=== PATIENT | male | born 1960 | race Caucasian/White ===

== ENCOUNTER 2016-06-08 14:04 | Inpatient (IN) ==
[2016-06-08] MEDS ORDERED: ASPIRIN 325 MG TABLET PO STA (14:43)
[2016-06-08] MEDS ORDERED: NITROGLYCERIN 2% OINT 1 INCH/GM PACK TOP STA (14:43)
[2016-06-08] MEDS ORDERED: ENOXAPARIN 100 MG/ML SYRINGE SUBCUT STA (14:43)
[2016-06-08] MEDS ORDERED: MORPHINE 2 MG/1 ML SYRINGE IV STA (14:43)
[2016-06-08] MEDS ORDERED: ONDANSETRON 4 MG/2 ML VIAL IV STA (14:43)
[2016-06-08] MEDS ORDERED: METOPROLOL TARTRATE 5 MG/5 ML VIAL IV STA (14:43)
--- NOTE | 2016-06-08 14:46 | EKG Report ---
Stationary ECG Study [facility] ER Test Date: 06/08/2016 2:22:13 PM Pat Name: JOANNE WILLARD Department: Room: 112 Gender: M Debt Counselor: : 1960 Requested by: Fabio Oliva Order Number: [id number] Reading MD: [place] Intervals [facility] Rate: 101 P: 54 NH: 159 QRS: 4 QRSD: 96 T: 47 QT: 333 QTc: 391 Interpretive Statements SINUS TACHYCARDIA OTHERWISE NORMAL TRACING Electronically Signed On 06-09-16 11:04:07 PYROTECHNICIAN by LA[place] SHAH [email or web address]
[2016-06-08 14:52] LABS: Basophils # 0.1 10*3/uL (0.0-0.2); Basophils % 0.6 % (0.0-0.8); Eosinophils # 0.1 10*3/uL (0.0-0.87); Eosinophils % 1.2 % (0.00-10.9); Hematocrit 47.3 VOL% (42.0-52.0); Hemoglobin 16.7 GM/DL (14.0-18.0); Immature Granulocytes % 0.3 %; Immature Granulocytes Absolute 0.03 #; Lymphocytes # 3.2 10*3/uL (1.4-4.0); Lymphocytes % 33.4 % (21.2-54.2); Mean Corpuscular HGB Conc 35.3 GM/DL (32-36); Mean Corpuscular Hemoglobin 31 PG (27-34); Mean Corpuscular Volume 86.3 FL (87-102); Mean Platelet Volume 9.4 FL (9.6-12.0); Monocytes # 0.6 10*3/uL (0.11-0.8); Neutrophils # 5.7 10*3/uL (1.4-7.4); Neutrophils % 58.5 % (38.7-73.9); Platelet Count 219 T/CUMM (130-400); Red Blood Count 5.48 MC/CUMM (3.8-5.5); Red Cell Distribution Width 12.6 % (9.3-17.3); White Blood Count 9.7 T/CUMM (4-12)
[2016-06-08 14:58] LABS: PT Patient Result 10.9 SECS; Partial Thromboplastin Time 27.9 SECS (0-40)
--- NOTE | 2016-06-08 15:00 | Emergency Department Note ---
Neel Hughes Gwan, am scribing for, and in the presence of, Fabio Walker MD 14:44 . Denise Hughes James D, MD, personally performed the services described in this documentation, ascribed by Lata Shaikh in my presence, and it is both accurate and complete 449 . Arrival - Arrival Chief Complaint: Chest Pain Stated Complaint: CHEST PAIN ED Nursing Triage Note: C/o sharp, constant left side chest pain radiating to left arm-onset 0800 this morning. Denies SOB or N/V. Mode of Arrival: Wheelchair Limitations: No Limitations Source: Patient, Old Records Reviewed, RN Notes Reviewed - History of Present Illness HPI Narrative: Pt is a 56 y/o male, with a hx of HTN and NIDDM, who presents to the ED with a c /o sharp constant chest pain with an onset 0800 this morning. Patient continued to note that his pain radiates to his left arm. He denies SOB, excessive urination, diaphoresis or any N/V. Patient stated that his onset began 2 days ago and he assumed it was gas. With onset today pt was prompted to report to report to ED. He confirmed that he has been compliant with prescribed medications. Family stated that pt was dx with strep throat 3 weeks ago. Patient is followed by [facility]. He has a SHx of 1 ppd cigarettes. Patient is in pain and has a LOCKETT now while in ED. No other problems/complaints reported in ED. Onset (ago): hour(s) Consistency: constant Severity: moderate Allergies/Adverse Reactions: Allergies Allergy/AdvReac Type Severity Reaction Status Date / Time No Known Allergies Allergy Verified 06/08/16 14:22 Home Medications: Home Medications Medication Instructions Recorded Confirmed Type Allopurinol 300 mg PO DAILY 06/08/16 06/08/16 History Aspirin [Ecotrin] 81 mg PO QPM 06/08/16 06/08/16 History Gabapentin 100 mg PO BID 06/08/16 06/08/16 History Lovastatin 10 mg PO QPM 06/08/16 06/08/16 History Nifedipine [Nifedipine ER] 30 mg PO DAILY 06/08/16 06/08/16 History metFORMIN [Glucophage] 500 mg PO BID 06/08/16 06/08/16 History Review of System - Review of System 12 point system: reviewed and no additional remarkable complaints except as stated - Review of System Cardiovascular: Present: as per HPI, chest pain Medical,Surgical,& Family Hx - Medical History Cardio: History of: Hypertension Endocrine: History of: Diabetes Mellitus (NIDDM), Dyslipidemia Rheumatology: History of;: Gout - Surgical History HEENT Surgeries: Surgical HX of: Tonsilectomy & Adenoidectomy - Social History Smoking Status: Current every day smoker Frequency of Alcohol Use: None Type of Drug Use: None Exam Vital Signs: Vital Signs Temperature 97.8 F 06/08/16 14:15 Pulse Rate 109 H 06/08/16 14:15 Respiratory Rate 18 06/08/16 14:15 Blood Pressure 144/88 06/08/16 14:15 O2 Sat by Pulse Oximetry 96 06/08/16 14:15 GENERAL: This is a well-nourished well-developed white male, smells of cigarettes, in no apparent distress. VITAL SIGNS: Reviewed HEENT: Head is atraumatic and normocephalic. Pupils are equal round react to light. Extraocular movements are intact. Oropharynx is benign with moist mucous membranes. NECK: Neck is soft and supple without tenderness. There are no masses. There is no lymphadenopathy. LUNGS: Lungs are clear to auscultation. Chest rises symmetrically. There is no chest wall tenderness. CV: Heart is regular rate and rhythm without murmurs rubs or gallops. ABDOMEN: Abdomen is soft, nontender to palpation. There are no abdominal abnormal masses palpated. There is no organomegaly. Bowel sounds are present and active. SKIN: Skin is warm and dry. No rash. EXTREMITIES: Patient has full range of motion without tenderness. There is no pedal edema. NEUROLOGIC: Awake alert and oriented 4. Cranial nerves II through XII are grossly intact. Motor is 5 over 5 in all extremities bilaterally. Deep tendon reflexes are 2+ and bilaterally equal. Course - Consultations Consultation #1: Discussed with Dr. Bowman. Patient will be taken to the Computer Aided Drafter. Time: 15:26 Results - Labs CBC & BMP: 06/08/16 14:37 06/08/16 14:37 Lab Results: I have reviewed the patients labs Labs: Laboratory Tests 06/08/16 14:37 Troponin I 2.020 H - EKG EKG results: interpreted by ERMD - Impressions EKG: Sinus tachycardia with a rate of 101, nonspecific ST-T wave changes, normal axis. - Diagnostic Findings Procedure: Chest x-ray: image reviewed by me Disposition Clinical Impression: Diabetes mellitus, Essential hypertension, Non-ST elevation PR (NSTEMI) Case discussed with: patient Disposition: Still a Patient Condition: Stable
[2016-06-08] MEDS ORDERED: NITROGLYCERIN 2% OINT 1 INCH/GM PACK TOP ONE (15:03)
[2016-06-08] MEDS ORDERED: MORPHINE 2 MG/1 ML SYRINGE ONE (15:03)
[2016-06-08] MEDS ORDERED: ASPIRIN 325 MG TABLET ONE (15:03)
[2016-06-08] MEDS ORDERED: METOPROLOL TARTRATE 5 MG/5 ML VIAL IV ONE (15:03)
[2016-06-08] MEDS ORDERED: ENOXAPARIN 80 MG/0.8 ML SYRINGE SUBCUT ONE (15:03)
[2016-06-08] MEDS ORDERED: ONDANSETRON 4 MG/2 ML VIAL ONE (15:03)
[2016-06-08 15:09] LABS: Albumin 4.6 G/DL (3.4-5.0); Bilirubin,Total 0.5 MG/DL (0.2-1.0); Osmolality,Calculated 280.4 MOS/KG (273-304); Potassium 3.6 MMOL/L (3.5-5.1); Total Protein 7.6 G/DL (6.4-8.3)
[2016-06-08] MEDS ORDERED: TICAGRELOR 90 MG TABLET PO STA (15:23)
--- NOTE | 2016-06-08 15:24 | XRay Report ---
XR chest 2V Indication: Chest pain Comparison: None available Findings: The heart and mediastinum are normal in size and configuration. The pulmonary vascularity is normal in caliber. No lung infiltrates, effusions, pneumothorax or other abnormality is demonstrated. Impression: Normal chest x-ray PROCEDURE INTERPRETED AT [facility] DEPARTMENT OF RADIOLOGY Final Report Signed by: Dr. Titi Oreilly
[2016-06-08] MEDS ORDERED: TICAGRELOR 90 MG TABLET ONE (15:31)
[2016-06-08] MEDS ORDERED: DIAZEPAM 5 MG TABLET PO ONE (16:14)
[2016-06-08] MEDS ORDERED: diphenhydrAMINE CAP 25 MG CAPSULE PO ONE (16:14)
[2016-06-08] MEDS ORDERED: MAGNESIUM SULF RIDER 2 GM in PREMIX 1 EACH IV PRN (16:14)
[2016-06-08] MEDS ORDERED: POTASSIUM CHLORIDE RIDER 10 MEQ in PREMIX 1 EACH IV PRN (16:14)
--- NOTE | 2016-06-08 16:18 | Cardiology History & Physical ---
Assessment and Plan - Time spent with patient Time spent with patient: Greater than 30 minutes (Exam review discussion with the patient and his family chart review) Time spent discussing smoking cessation with patient: 3 to 10 minutes (1) Dyslipidemia Status: Chronic Current Visit: Yes (2) Tobacco abuse Status: Chronic Current Visit: Yes (3) Postinfarction angina Status: Acute Current Visit: Yes (4) Diabetes mellitus Status: Acute Assessment and plan: First diagnosed 1 month ago Current Visit: Yes Qualifiers: Diabetes mellitus type: type 2 (5) Essential hypertension Status: Chronic Assessment and plan: Severely uncontrolled at this time Current Visit: Yes (6) Non-ST elevation [place] (NSTEMI) Status: Acute Assessment and plan: We have a spot troponin of 2 and a really bad episode of chest discomfort on approximately 48 hours ago now stuttering her recurrent chest discomfort. Do not know if this is worsening or just postinfarct angina I discussed with the patient and his family the possibility risk benefits and options and recommended urgent left heart catheterization the Mucking Machine Operator team is here. The patient agreed. Current Visit: Yes History of Present Illness Chief complaint: Chest pain History of present illness: Mr. Mccarthy is a 56 year old male hypertensive smoking gentleman with strong family history of coronary artery disease who was diagnosed with type 2 diabetes mellitus approximately 1 month ago. 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 He resides in [facility]. The patient had what he thought was gas and abdominal chest discomfort on that would never go away did not respond to antacids he has had several episodes lasting 10 minutes or more than a been stuttering in nature since that time and maybe even some earlier in the week. The episode on was rather prolonged. Yesterday was not too bad but this morning when he got up to feed his turkeys he had intense pain in his mid forearm and hand associated with chest pain that was 9 or 10 out of 10. It would not go away. He subsequent came here for further evaluation. He was seen by Dr. Tone Walker in the emergency room he was found to have an elevated troponin of 2 and a rather unremarkable ECG. He continued to have chest pain despite IV beta-blockers nitrates and morphine. I was called to see. I saw the patient in the emergency room room 12. I discussed with the patient his and his health insurance agent. Home Medications Medication Instructions Recorded Confirmed Type Allopurinol 300 mg PO DAILY 06/08/16 06/08/16 History Aspirin [Ecotrin] 81 mg PO QPM 06/08/16 06/08/16 History Gabapentin 100 mg PO BID 06/08/16 06/08/16 History Lovastatin 10 mg PO QPM 06/08/16 06/08/16 History Nifedipine [Nifedipine ER] 30 mg PO DAILY 06/08/16 06/08/16 History metFORMIN [Glucophage] 500 mg PO BID 06/08/16 06/08/16 History Allergies Allergy/AdvReac Type Severity Reaction Status Date / Time No Known Allergies Allergy Verified 06/08/16 14:22 - Constitutional Constitutional: Absent: anorexia, malaise, night sweats, weight gain - EENT Eyes: Absent: blurry vision, diplopia Nose, mouth and throat: Absent: lip swelling - Cardiovascular Cardiovascular: Present: chest pain at rest, chest pain with activity, dyspnea, dyspnea on exertion, radiating jaw, neck or arm pain. Absent: edema, lightheadedness, orthopnea, palpitations, PND - Respiratory Respiratory: Present: cough, dyspnea on exertion - Gastrointestinal Gastrointestinal: Present: abdominal pain - Genitourinary Genitourinary: Absent: difficulty urinating, hematuria - Musculoskeletal Musculoskeletal: Absent: back pain, joint swelling - Neurological Neurological: Absent: abnormal gait, abnormal speech, headache(s), memory loss - Psychiatric Psychiatric: Absent: anxiety, depression - Endocrine Endocrine: Absent: cold intolerance, heat intolerance - Hematologic/Lymphatic Hematologic/Lymphatic: Absent: easy bleeding, easy bruising Medical,Surgical,& Family Hx - Medical History Cardio: History of: Hypertension Endocrine: History of: Diabetes Mellitus (NIDDM) (Diagnosis 1 month ago), Dyslipidemia Rheumatology: History of;: Gout - Surgical History HEENT Surgeries: Surgical HX of: Tonsilectomy & Adenoidectomy - Family History Family History: Reports;: Family Diabetes, Family Heart Disease (Mom has stents) , Family Hypertension - Social History Smoking Status: Current every day smoker Frequency of Alcohol Use: None (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) Type of Drug Use: None Marital Status: Lives With:: Spouse Functional capacity: independent ambulation (Works as an airplane electrician) Cardiology Physical Exam - Constitutional Vitals: Vital Signs Temp Pulse Resp BP Pulse Ox 97.8 F 109 H 18 144/88 96 06/08/16 14:15 06/08/16 14:15 06/08/16 14:15 06/08/16 14:15 06/08/16 14:15 Intake and Output 06/08/16 06/08/16 06/08/16 07:59 15:59 23:59 Other: Weight 72.575 kg Patient Weight 06/08/16 23:59 Weight 72.575 kg General appearance: mild distress (Having pain in his left arm he is grimacing and massaging his arm), other (Smells of cigarette smoke) - Head Head exam: Present: normal inspection - Eye Eye exam: Present: EOMI Pupils: Present: EMETERIO - ENT ENT exam: Present: normal exam - Neck Neck exam: Present: normal inspection, other (Soft bruit) - Respiratory Respiratory exam: Present: rhonchi (Scattered rhonchi) - Cardiovascular Cardiovascular exam: Present: regular rate and rhythm (I do not hear significant murmur), other (All pulses are bounding his blood pressure is elevated) - GI/Abdominal GI/Abdominal exam: Present: normal bowel sounds - Extremities Exam Extremities exam: Present: normal inspection - Back Exam Back exam: Present: normal inspection - Neurological Exam Neurological exam: Present: alert, oriented X3 - Psychiatric Psychiatric exam: Present: normal affect - Skin Skin exam: Present: normal color, warm, other (Somewhat of a mara complexion) Result/EKG - Labs CBC & BMP: 06/08/16 14:37 06/08/16 14:37 Labs: Laboratory Results - last 24 hr 06/08/16 06/08/16 06/08/16 14:37 14:37 14:37 WBC 9.7 RBC 5.48 Hgb 16.7 Hct 47.3 MCV 86.3 L MCH 31 MCHC 35.3 RDW 12.6 Plt Count 219 MPV 9.4 L Neut % (Auto) 58.5 Lymph % (Auto) 33.4 [place] % (Auto) 6.0 Eos % (Auto) 1.2 Baso % (Auto) 0.6 Neut # (Auto) 5.7 Lymph # (Auto) 3.2 [place] # (Auto) 0.6 Eos # (Auto) 0.1 Baso # (Auto) 0.1 Immature Gran % 0.3 Nucleated RBC % 0.0 Immature Gran # 0.03 Nucleated RBCs # 0.00 INR 1.0 PT Patient/Control Mix 10.9 Circ Anticoag PTT 27.9 Sodium 140 Potassium 3.6 Chloride 104 Carbon Dioxide 28 Anion Gap 11.6 BUN 12 Creatinine 0.80 GFR Calculation 105 BUN/Creatinine Ratio 15.00 Glucose 138 H Calculated Osmolality 280.4 Calcium 9.0 Total Bilirubin 0.50 AST 35 ALT 23 Alkaline Phosphatase 110 Troponin I Total Protein 7.6 Albumin 4.6 Globulin 3.0 Albumin/Globulin Ratio 1.5 06/08/16 14:37 WBC RBC Hgb Hct MCV MCH MCHC RDW Plt Count MPV Neut % (Auto) Lymph % (Auto) [place] % (Auto) Eos % (Auto) Baso % (Auto) Neut # (Auto) Lymph # (Auto) [place] # (Auto) Eos # (Auto) Baso # (Auto) Immature Gran % Nucleated RBC % Immature Gran # Nucleated RBCs # INR PT Patient/Control Mix Circ Anticoag PTT Sodium Potassium Chloride Carbon Dioxide Anion Gap BUN Creatinine GFR Calculation BUN/Creatinine Ratio Glucose Calculated Osmolality Calcium Total Bilirubin AST ALT Alkaline Phosphatase Troponin I 2.020 H Total Protein Albumin Globulin Albumin/Globulin Ratio - EKG EKG results: interpreted by me (Sinus tachycardia otherwise normal)
[2016-06-08] MEDS ORDERED: NITROGLYCERIN DRIP 50 MG/250 ML BOTTLE IV ONE (16:20)
[2016-06-08] MEDS ORDERED: VERAPAMIL 5 MG/2 ML VIAL ONE (16:20)
[2016-06-08] MEDS ORDERED: LIDOCAINE 1% 20 ML VIAL ONE (16:20)
[2016-06-08] MEDS ORDERED: HEPARIN/NACL 0.9% 2 UNITS/ML 1,000 ML IV ONE (16:20)
[2016-06-08 16:23] LABS: Apearance,Urine CLEAR (Clear); Bilirubin,Urine Negative (Negative); Blood, Urine Negative (Negative); Glucose,Urine (UA) Negative (Negative); Ketones,Urine Negative (Negative); Mucus,Urine Occasional /LPF (Occasional); Nitrite,Urine Negative (Negative); Protein,Urine Negative; RBC,Urine 1 /HPF (0-4); Squamous Epithelial Cell,Urine Occasional /HPF (0-10); Urine Color Straw (Yellow); Urine Specific Gravity 1.009 (1.001-1.035); Urine Urobilinogen < 2.0 EU/DL (0.2-1.0); WBC,Urine 1 /HPF (0-6)
[2016-06-08] MEDS ORDERED: MIDAZOLAM 2 MG/2 ML VIAL ONE ×4 (16:24→17:37)
[2016-06-08] MEDS ORDERED: fentaNYL 100 MCG/2 ML VIAL ONE (16:24)
--- NOTE | 2016-06-08 16:25 | History and Physical Update ---
Sedation H&P Update - History and Physical H&P was reviewed, the patient examined and there: are no changes in the patients condition since last H&P was completed. - Dictation Physical: refer to scanned H&P - Physical Exam Mental Status: alert and oriented Heart: regular rate and rhythm Lung: other (Rhonchi) Abdomen: within normal limits Vitals: within normal limits - Sedation Plan for Sedation: moderate Patient Consent: Procedure disscussed with patient and patinet has consented., Risks and benefits were discussed with patient,including infection,, bleeding, injury to surrounding structures, seizure, temporary nerve, Patient understands and accepts potential risks/benefits and agrees to, proceed. ASA Class: III Airway Assessment: Class II: Soft palate, uvula, fauces visible
[2016-06-08] MEDS ORDERED: SODIUM CHLORIDE 0.45% 1,000 ML IV SCH (16:30)
[2016-06-08 16:31] LABS: Barbiturates Screen,Urine Negative (Negative); Benzodiazepines Screen,Urine Negative (Negative); Cannabinoid Screen,Urine Negative (Negative); Opiate Screen,Urine Positive (Negative); Phencyclidine Screen,Urine Negative (Negative)
[2016-06-08] MEDS ORDERED: HEPARIN/NACL 0.9% 2 UNITS/ML 500 ML IV ONE (16:56)
[2016-06-08] MEDS ORDERED: diphenhydrAMINE 50 MG/1 ML VIAL ONE ×2 (16:59→17:37)
[2016-06-08] MEDS ORDERED: DEXTROSE 50% 25 GM/50 ML VIAL IV PRN (18:05)
[2016-06-08] MEDS ORDERED: GLUCAGON 1 MG VIAL IM PRN (18:05)
[2016-06-08] MEDS ORDERED: hydrALAZINE 20 MG/1 ML VIAL IV PRN (18:06)
--- NOTE | 2016-06-08 18:24 | Cardiac Catheterization ---
Date of Procedure:: 06/08/16 Pre-op Diagnosis: Non-ST elevation myocardial infarction with postinfarct angina Post-op diagnosis: other (1. Non-ST elevation myocardial infarction secondary to subtotal bifurcation occlusion of the first diagonal in the mid left anterior descending artery 2. High-grade stenosis of the first obtuse marginal3. Diffuse branch disease and distal vessels) Procedure: Procedures: 1. Left heart catheterization resting hemodynamics 2. Selective left and right coronary angiography 3. Left ventriculography 4. Right femoral iliac angiography 5. Percutaneous coronary intervention of the mid left anterior descending artery and ostium of the first diagonal with modified kissing stents and "kissing balloon" post PCI to high pressure atmospheres with NC balloons. (2.5 x 12 mm Xience Alpine drug-eluting stent in the ostium of the first diagonal and 2.5 x 28 mm Xience Alpine drug-eluting stent in the mid LAD). The LAD had CAROLYN I flow with subtotal occlusion or 99% stenosis. The first diagonal had 90 % stenosis involving the ostium of the first diagonal with CAROLYN-3 flow. Both vessels had less than 10% residual stenosis with CAROLYN-3 flow at completion of the case. 6. Percutaneous coronary mention of the proximal first obtuse marginal with a 2.5 x 12 mm Xience Alpine drug-eluting stent. The vessel was 80% stenosis with CAROLYN-3 flow pre-PCI and less than 10% residual stenosis with CAROLYN-3 flow post PCI After signed an informed consent was obtained, the patient was prepped and draped in standard fashion for right radial access. Time out was recorded. 0.5 mL of 1% lidocaine were infiltrated in the skin and subcutaneous tissue overlying the right radial artery and Seldinger technique was utilized with a Angiocath to obtain access to the right radial artery. A Terumo glide wire was then advanced into the midforearm under fluoroscopic guidance. The Angiocath was removed and a 6 Cymraes Terumo glide sheath was placed over the Glidewire. The sheath was aspirated and flushed and then 5 mg of verapamil and 200 g of nitroglycerin were given through the sheath. At this time an 035 J-wire was used to guide a [place] 6 Cymraes catheter into the central aorta across the aortic valve and into the ventricle. A 10 mL injection of contrast was used for ventriculography in the CHIN projection. Pressure measurements and pullback measurements were obtained. The [place] catheter was then used to engage the left main coronary artery and multiple orthogonal views of the left system were obtained. The catheter then was torqued into the right coronary artery and orthogonal views of the right system were obtained. The catheter was then exchanged over the wire. The sheath was aspirated and flushed. The can reforming machine operator reviewed the films. In the room was set up for the intervention mode. The patient received a milligram per kilogram subcu of Lovenox in the emergency room approximately 1 hour before reaching the cardiac catheterization lab as well as a load with Brilinta 180 mg. Because of the bifurcation nature and the plans initially to do SKS stenting decision was made to use 8 Cymraes guiding system through the right femoral artery access. The area was prepped and draped and modified Seldinger technique and an 18-gauge [employer] needle was used for access to the right femoral artery. An 0.35 J-wire was advanced through the needle into the central aorta under fluoroscopy. A small skin was made and a 8 Cymraes sheath was placed over the wire. The sheath was aspirated and flushed. At this time an EBU 3.5 guiding catheters veins overlying the central aorta the left main coronary was selectively engaged to [employer]-water wires were advanced into the left system the first of the distal LAD which was occlusive in the second into the first diagonal. At this time the mid LAD was dilated with a 2.0 x 15 mm [place] balloon 2 to a maximum of 8 samantha. This balloon was removed and a 2.0 x 8 mm apex balloon was taken into the diagonal system there was a small distal branch and a diagonal that was ballooned once with a 8 mm inflation was held for 8 seconds. The balloon was then brought back to the ostium in the ostium of the first diagonal was treated with a 2 oh by 8 mm inflation to 8 samantha. Both balloons were then removed. At this time a 2.5 x 12 mm science Alpine drug-eluting stent was advanced over the wire into the diagonal. The anatomy was reviewed again and decision was made to change from the plans for SKS to a mini crush technique. The stent was deployed at the ostium of the diagonal. Stent balloon was removed. At this time attempts to pass the 2.5 x 28 mm Alpine drug-eluting stent pass the stent into the LAD distal LAD was unsuccessful. Was felt this was due to small amount of stent hanging out and angulation. The previously used 2.0 apex balloon was then used to make a gentle inflation at the ostium of the diagonal over the wire into the LAD. The balloon was removed and with greater ease the 2.5 x 20 mm science Alpine drug-eluting stent was advanced into the LAD carefully attempting to place the marker at or very near the location of the proximal portion of the more distal wall of the stent in the diagonal. The stent was deployed at 12 samantha. At this time the stent balloon was removed. Now a 2.5 x 12 mm NC Quantum balloon was advanced into the first diagonal and a 2.5 x 20 mm NC Quantum was advanced into the LAD. The NC balloons were both taken to 14 atmospheres. The LAD balloon was then advanced more distally in the distal portion of the stent was also postdilated to 13 samantha. Both balloons were removed and 2 orthogonal views of the intervention were obtained wires were removed. At this time attention was turned to the obtuse marginal one of the pro-water wires previously used was advanced back into the obtuse marginal and a 2.5 x 12 mm science Alpine drug-eluting stent was used to direct stent this area of stenosis. There is significant difficulty passing the stent however once it was passed it was deployed with good result in mild residual stenosis. The previously deployed 2.5 x 12 mm NC Quantum balloon was used to post dilate the stent to 18 samantha. There was excellent angiographic result. 2 orthogonal views were obtained. The can reforming machine operator reviewed the films. The sheath was aspirated and flushed and a right femoral and iliac angiography was performed. The access site was amenable for closure and the area was reprepped with ChloraPrep and draped with sterile towels. The Angio-Seal closure device was used in standard technique. There was no hematoma and distal pulses were good. A regular TR band was then placed over the right radial access at 8 cc of air. Total diagnostic fluoroscopy time 8.49 minutes with total fluoroscopy dose 807 mg a total contrast used 250 cc of Visipaque. FINDINGS: LV: 125/2 LVEDP: 12 Ao: 123/81 EF: 55% LM: Mild disease in the proximal segment LAD: This is a relatively small vessel is diffusely diseased. There is a large are relatively large first diagonal that has several branches. At the bifurcation of this diagonal and the remainder of the LAD there is subtotal occlusion of a relatively long segment of the LAD with CAROLYN I flow the flow does not reach the apex. There is a 90% ostial stenosis in his first diagonal that has CAROLYN II flow. There is also a branch more distally that is 90% ostial stenosis with CAROLYN-3 flow in that portion of the vessel. LCx: Left circumflex is nondominant has mild disease throughout the AV groove portion there is a first diagonal it is relatively good size vessel that has diffuse disease but has a focal 80-90% stenosis has CAROLYN-3 flow. There is ostial disease in this diagonal it is mild to moderate at 50%. RCA: This is a dominant vessel it is diffusely diseased but very large RFA/ONEIL: There is minimal luminal irregularities in the right femoral iliac artery access is amenable for closure Assessment: 1. Preserved cardiac volumes and ejection fraction with normal resting hemodynamics 2. Severe two-vessel coronary artery disease and daughter branch disease as described above status post successful percutaneous coronary mention with drug- eluting stents as described above 3. (Culprit vessel subtotal occluded mid LAD ) 3. Tobacco use disorder 4. Diabetes mellitus type 2 5. Dyslipidemia PLAN: 1. Dual antiplatelet therapy for a minimum of 1 year ideally 2. Aggressive therapy lifestyle changes including aggressive lipid management and smoking cessation 3. Cardiac rehab 4. BRAULIO inhibitor beta-omar high-dose statin low-dose aspirin ticagrelor 5. Monitor in the ICU for complications of non-ST elevation myocardial infarction 6. I discussed with the family roll scale worker and other friends in the waiting room with pictures Implants: 1. 2.5 x 28 mm Xience drug-eluting stent in the mid left anterior descending artery 2. 2.5 x 12 mm Xience drug-eluting stent in the first diagonal 3. 2.5 x 12 mm Xience drug-eluting stent in the first obtuse marginal 4. 8 Cymraes Angio-Seal closure device right femoral arteriotomy Anesthesia: moderate conscious sedation Surgeon / Physician: Rianna Bowman Care Advocate: none Estimated blood loss: none Specimens: none sent Condition: stable Disposition: ICU/CCU - Medications / Follow-up
[2016-06-08] MEDS ORDERED: ASPIRIN EC 81 MG TABLET PO SCH (19:00)
[2016-06-08] MEDS: SODIUM BICARB INJ 50 MEQ in SODIUM CHLORIDE 0.45% 1,000 ML IV SCH (19:50)
[2016-06-08] MEDS: INSULIN LISPRO 100 UNIT/ML SUBCUT SCH (20:32)
[2016-06-08] MEDS: TICAGRELOR 90 MG TABLET PO SCH (20:32)
[2016-06-08] MEDS: ATORVASTATIN 40 MG TABLET PO SCH (20:32)
[2016-06-08] MEDS: CARVEDILOL 3.125 MG TABLET PO SCH (20:32)
[2016-06-08] MEDS: ASPIRIN EC 81 MG TABLET PO SCH (20:32)
[2016-06-08] MEDS: NICOTINE 21 MG/24 HR PATCH TRANSDERM SCH (20:33)
[2016-06-08] MEDS: GABAPENTIN 100 MG CAPSULE PO SCH (20:33)
[2016-06-08] MEDS: ACETAMINOPHEN 325 MG TABLET PO PRN (23:28)
[2016-06-09] MEDS: SODIUM BICARB INJ 50 MEQ in SODIUM CHLORIDE 0.45% 1,000 ML IV SCH (03:58)
[2016-06-09] MEDS: ACETAMINOPHEN 325 MG TABLET PO PRN ×2 (04:21→20:58)
[2016-06-09 04:57] LABS: Basophils # 0.1 10*3/uL (0.0-0.2); Basophils % 0.5 % (0.0-0.8); Eosinophils # 0.1 10*3/uL (0.0-0.87); Eosinophils % 0.4 % (0.00-10.9); Hematocrit 39.8 VOL% (42.0-52.0); Hemoglobin 14.1 GM/DL (14.0-18.0); Immature Granulocytes % 0.5 %; Immature Granulocytes Absolute 0.07 #; Lymphocytes # 2.5 10*3/uL (1.4-4.0); Lymphocytes % 16.6 % (21.2-54.2); Mean Corpuscular HGB Conc 35.4 GM/DL (32-36); Mean Corpuscular Hemoglobin 30 PG (27-34); Mean Corpuscular Volume 85.6 FL (87-102); Mean Platelet Volume 9.8 FL (9.6-12.0); Monocytes # 1.2 10*3/uL (0.11-0.8); Monocytes % 7.6 % (1.7-12.7); Neutrophils # 11.4 10*3/uL (1.4-7.4); Neutrophils % 74.4 % (38.7-73.9); Platelet Count 212 T/CUMM (130-400); Red Blood Count 4.65 MC/CUMM (3.8-5.5); Red Cell Distribution Width 12.9 % (9.3-17.3); White Blood Count 15.3 T/CUMM (4-12)
[2016-06-09 05:23] LABS: Calcium 8.2 MG/DL (8.5-10.1); Potassium 3.7 MMOL/L (3.5-5.1)
[2016-06-09] MEDS: TICAGRELOR 90 MG TABLET PO SCH ×2 (08:44→20:58)
[2016-06-09] MEDS: CARVEDILOL 3.125 MG TABLET PO SCH (08:45)
[2016-06-09] MEDS: GABAPENTIN 100 MG CAPSULE PO SCH ×2 (08:45→20:59)
[2016-06-09] MEDS: PANTOPRAZOLE 40 MG TABLET PO SCH (08:45)
[2016-06-09] MEDS: LISINOPRIL 10 MG TABLET PO SCH (08:45)
[2016-06-09] MEDS: ALLOPURINOL 300 MG TABLET PO SCH (08:45)
[2016-06-09] MEDS: NICOTINE 21 MG/24 HR PATCH TRANSDERM SCH (08:46)
[2016-06-09] MEDS: INSULIN LISPRO 100 UNIT/ML SUBCUT SCH ×4 (08:49→20:57)
--- NOTE | 2016-06-09 08:49 | EKG Report ---
Stationary ECG Study [facility] Test Date: 06/09/2016 7:59:07 AM Pat Name: SUDHEER RUBIO Department: Room: 112 Gender: M Clothes Marker: RICHARD : 1960 Requested by: Casey Oliva Order Number: [id number] Reading MD: [place] Intervals Kennedy Rate: 72 P: 56 MD: 165 QRS: -3 QRSD: 94 T: 34 QT: 358 QTc: 382 Interpretive Statements SINUS RHYTHM NONSPECIFIC ST ELEVATION HIPOLITO REPRESENT ANTEROLATERAL ISCHEMIA Electronically Signed On 06-09-16 11:20:44 INTERNET SPECIALIST by [place] SHAH [email or web address]
--- NOTE | 2016-06-09 10:01 | Cardiology Progress Note ---
Assessment and Plan - Time spent with patient Time spent with patient: Greater than 30 minutes (Education, smoking cessation documentation and orders) Time spent discussing smoking cessation with patient: more than 10 minutes (1) Dyslipidemia Status: Chronic Current Visit: Yes (2) Tobacco abuse Status: Chronic Current Visit: Yes (3) Postinfarction angina Status: Resolved Current Visit: Yes (4) Diabetes mellitus Status: Acute Assessment and plan: First diagnosed 1 month ago Current Visit: Yes Qualifiers: Diabetes mellitus type: type 2 (5) Essential hypertension Status: Chronic Assessment and plan: much better Current Visit: Yes (6) Non-ST elevation CA (NSTEMI) Status: Acute Assessment and plan: s/p urgent PCI Current Visit: Yes Cardiology - PN: Subj Interval history: Mr. Colón states he feels dramatically better today. He has not had any more arm or chest pain. I nicolas a diagram for him concerning his coronary artery disease and I emphasized again to him the importance of compliance with his therapy and cessation of tobacco. He had a significant rise in his cardiac biomarkers after restoring flow to the LAD he probably needs to be in the hospital at least 3 days. He is wishing to go home today. Exam (Progress Note) - Constitutional Vitals: Period Temp Pulse Resp BP Sys/Neumann Pulse Ox Last 24 Hr 97.8 F-98.6 F 66-109 13-24 115-163/65-104 95-100 General appearance: normal weight - Head Head exam: Present: normal inspection - Eye Eye exam: Present: EOMI Pupils: Present: EMETERIO - Respiratory Respiratory exam: Present: clear to auscultation bilaterally - Cardiovascular Cardiovascular exam: Present: regular rate and rhythm (No rub or gallop. The patient is a considerable risk for complications from his non-ST elevation myocardial infarction with occluded LAD) - GI/Abdominal GI/Abdominal exam: Present: normal bowel sounds - Extremities Exam Extremities exam: Present: normal inspection, other (Both cath sites look good distal pulses are good) - Back Exam Back exam: Present: normal inspection - Neurological Exam Neurological exam: Present: alert, oriented X3 Result/EKG - Labs CBC & BMP: 06/09/16 04:17 06/09/16 04:16 Labs: Laboratory Results - last 24 hr 06/08/16 06/08/16 06/08/16 14:37 14:37 14:37 WBC 9.7 RBC 5.48 Hgb 16.7 Hct 47.3 MCV 86.3 L MCH 31 MCHC 35.3 RDW 12.6 Plt Count 219 MPV 9.4 L Neut % (Auto) 58.5 Lymph % (Auto) 33.4 [place] % (Auto) 6.0 Eos % (Auto) 1.2 Baso % (Auto) 0.6 Neut # (Auto) 5.7 Lymph # (Auto) 3.2 [place] # (Auto) 0.6 Eos # (Auto) 0.1 Baso # (Auto) 0.1 Immature Gran % 0.3 Nucleated RBC % 0.0 Immature Gran # 0.03 Nucleated RBCs # 0.00 INR 1.0 PT Patient/Control Mix 10.9 Circ Anticoag PTT 27.9 Sodium 140 Potassium 3.6 Chloride 104 Carbon Dioxide 28 Anion Gap 11.6 BUN 12 Creatinine 0.80 GFR Calculation 105 BUN/Creatinine Ratio 15.00 Glucose 138 H POC Glucose Calculated Osmolality 280.4 Calcium 9.0 Total Bilirubin 0.50 AST 35 ALT 23 Alkaline Phosphatase 110 Troponin I Total Protein 7.6 Albumin 4.6 Globulin 3.0 Albumin/Globulin Ratio 1.5 Urine Color Urine Appearance Urine pH Ur Specific [place] Urine Protein Urine Glucose (UA) Urine Ketones Urine Blood Urine Nitrate Urine Bilirubin Urine Urobilinogen Urine Leukocytes Urine RBC Urine WBC Ur Squamous Epith Cells Urine Mucus Ur Culture Indicated? Urine Opiates Screen Ur Barbiturates Screen Ur Phencyclidine Scrn U Amphetamine/Methamph U Benzodiazepines Scrn U Cocaine Metab Screen U Cannabinoids Screen 06/08/16 06/08/16 06/08/16 14:37 14:44 16:17 WBC RBC Hgb Hct MCV MCH MCHC RDW Plt Count MPV Neut % (Auto) Lymph % (Auto) [place] % (Auto) Eos % (Auto) Baso % (Auto) Neut # (Auto) Lymph # (Auto) [place] # (Auto) Eos # (Auto) Baso # (Auto) Immature Gran % Nucleated RBC % Immature Gran # Nucleated RBCs # INR PT Patient/Control Mix Circ Anticoag PTT Sodium Potassium Chloride Carbon Dioxide Anion Gap BUN Creatinine GFR Calculation BUN/Creatinine Ratio Glucose POC Glucose Calculated Osmolality Calcium Total Bilirubin AST ALT Alkaline Phosphatase Troponin I 2.020 H Total Protein Albumin Globulin Albumin/Globulin Ratio Urine Color Straw Urine Appearance Clear Urine pH 8.0 Ur Specific [place] 1.009 Urine Protein Negative Urine Glucose (UA) Negative Urine Ketones Negative Urine Blood Negative Urine Nitrate Negative Urine Bilirubin Negative Urine Urobilinogen < 2.0 H Urine Leukocytes Negative Urine RBC 1 Urine WBC 1 Ur Squamous Epith Cells Occasional Urine Mucus Occasional Ur Culture Indicated? Not indicated Urine Opiates Screen Positive H Ur Barbiturates Screen Negative Ur Phencyclidine Scrn Negative U Amphetamine/Methamph Negative U Benzodiazepines Scrn Negative U Cocaine Metab Screen Negative U Cannabinoids Screen Negative 06/08/16 06/08/16 06/08/16 19:35 20:23 23:28 WBC RBC Hgb Hct MCV MCH MCHC RDW Plt Count MPV Neut % (Auto) Lymph % (Auto) [place] % (Auto) Eos % (Auto) Baso % (Auto) Neut # (Auto) Lymph # (Auto) [place] # (Auto) Eos # (Auto) Baso # (Auto) Immature Gran % Nucleated RBC % Immature Gran # Nucleated RBCs # INR PT Patient/Control Mix Circ Anticoag PTT Sodium Potassium Chloride Carbon Dioxide Anion Gap BUN Creatinine GFR Calculation BUN/Creatinine Ratio Glucose POC Glucose 75 99 Calculated Osmolality Calcium Total Bilirubin AST ALT Alkaline Phosphatase Troponin I 81.200 H D Total Protein Albumin Globulin Albumin/Globulin Ratio Urine Color Urine Appearance Urine pH Ur Specific [place] Urine Protein Urine Glucose (UA) Urine Ketones Urine Blood Urine Nitrate Urine Bilirubin Urine Urobilinogen Urine Leukocytes Urine RBC Urine WBC Ur Squamous Epith Cells Urine Mucus Ur Culture Indicated? Urine Opiates Screen Ur Barbiturates Screen Ur Phencyclidine Scrn U Amphetamine/Methamph U Benzodiazepines Scrn U Cocaine Metab Screen U Cannabinoids Screen 06/09/16 06/09/16 06/09/16 04:16 04:16 04:17 WBC 15.3 H D RBC 4.65 Hgb 14.1 D Hct 39.8 L MCV 85.6 L MCH 30 MCHC 35.4 RDW 12.9 Plt Count 212 MPV 9.8 Neut % (Auto) 74.4 H Lymph % (Auto) 16.6 L [place] % (Auto) 7.6 Eos % (Auto) 0.4 Baso % (Auto) 0.5 Neut # (Auto) 11.4 H Lymph # (Auto) 2.5 [place] # (Auto) 1.2 H Eos # (Auto) 0.1 Baso # (Auto) 0.1 Immature Gran % 0.5 Nucleated RBC % 0.0 Immature Gran # 0.07 Nucleated RBCs # 0.00 INR PT Patient/Control Mix Circ Anticoag PTT Sodium 143 Potassium 3.7 Chloride 105 Carbon Dioxide 26 Anion Gap 15.7 H BUN 13 Creatinine 0.70 GFR Calculation 112 BUN/Creatinine Ratio 18.00 Glucose 115 H POC Glucose Calculated Osmolality 285.0 Calcium 8.2 L Total Bilirubin AST ALT Alkaline Phosphatase Troponin I 36.000 H D Total Protein Albumin Globulin Albumin/Globulin Ratio Urine Color Urine Appearance Urine pH Ur Specific [place] Urine Protein Urine Glucose (UA) Urine Ketones Urine Blood Urine Nitrate Urine Bilirubin Urine Urobilinogen Urine Leukocytes Urine RBC Urine WBC Ur Squamous Epith Cells Urine Mucus Ur Culture Indicated? Urine Opiates Screen Ur Barbiturates Screen Ur Phencyclidine Scrn U Amphetamine/Methamph U Benzodiazepines Scrn U Cocaine Metab Screen U Cannabinoids Screen 06/09/16 08:03 WBC RBC Hgb Hct MCV MCH MCHC RDW Plt Count MPV Neut % (Auto) Lymph % (Auto) [place] % (Auto) Eos % (Auto) Baso % (Auto) Neut # (Auto) Lymph # (Auto) [place] # (Auto) Eos # (Auto) Baso # (Auto) Immature Gran % Nucleated RBC % Immature Gran # Nucleated RBCs # INR PT Patient/Control Mix Circ Anticoag PTT Sodium Potassium Chloride Carbon Dioxide Anion Gap BUN Creatinine GFR Calculation BUN/Creatinine Ratio Glucose POC Glucose 93 Calculated Osmolality Calcium Total Bilirubin AST ALT Alkaline Phosphatase Troponin I Total Protein Albumin Globulin Albumin/Globulin Ratio Urine Color Urine Appearance Urine pH Ur Specific [place] Urine Protein Urine Glucose (UA) Urine Ketones Urine Blood Urine Nitrate Urine Bilirubin Urine Urobilinogen Urine Leukocytes Urine RBC Urine WBC Ur Squamous Epith Cells Urine Mucus Ur Culture Indicated? Urine Opiates Screen Ur Barbiturates Screen Ur Phencyclidine Scrn U Amphetamine/Methamph U Benzodiazepines Scrn U Cocaine Metab Screen U Cannabinoids Screen Quality Measures - VTE Contraindication to Pharmacological VTE Prophylaxis: Already on Theraputic Agent , No Prophylaxis Needed
[2016-06-09] MEDS: CARVEDILOL 6.25 MG TABLET PO SCH ×2 (10:24→20:59)
[2016-06-09] MEDS: ATORVASTATIN 40 MG TABLET PO SCH (20:58)
[2016-06-09] MEDS: ASPIRIN EC 81 MG TABLET PO SCH (20:58)
[2016-06-10 05:02] LABS: Basophils % 0.5 % (0.0-0.8); Eosinophils # 0.2 10*3/uL (0.0-0.87); Eosinophils % 2.4 % (0.00-10.9); Hematocrit 38.5 VOL% (42.0-52.0); Hemoglobin 13.4 GM/DL (14.0-18.0); Immature Granulocytes % 0.1 %; Immature Granulocytes Absolute 0.01 #; Lymphocytes # 2.5 10*3/uL (1.4-4.0); Lymphocytes % 28.3 % (21.2-54.2); Mean Corpuscular HGB Conc 34.8 GM/DL (32-36); Mean Corpuscular Hemoglobin 30 PG (27-34); Mean Corpuscular Volume 87.1 FL (87-102); Mean Platelet Volume 9.7 FL (9.6-12.0); Monocytes # 0.9 10*3/uL (0.11-0.8); Monocytes % 10.4 % (1.7-12.7); Neutrophils # 5.1 10*3/uL (1.4-7.4); Neutrophils % 58.3 % (38.7-73.9); Platelet Count 172 T/CUMM (130-400); Red Blood Count 4.42 MC/CUMM (3.8-5.5); Red Cell Distribution Width 12.7 % (9.3-17.3); White Blood Count 8.7 T/CUMM (4-12)
[2016-06-10 05:33] LABS: Calcium 8.1 MG/DL (8.5-10.1); Osmolality,Calculated 291.6 MOS/KG (273-304); Potassium 3.5 MMOL/L (3.5-5.1)
[2016-06-10] MEDS: INSULIN LISPRO 100 UNIT/ML SUBCUT SCH ×4 (07:34→23:16)
[2016-06-10] MEDS: GABAPENTIN 100 MG CAPSULE PO SCH ×2 (08:55→23:16)
[2016-06-10] MEDS: CARVEDILOL 6.25 MG TABLET PO SCH ×2 (08:55→23:16)
[2016-06-10] MEDS: LISINOPRIL 10 MG TABLET PO SCH (08:55)
[2016-06-10] MEDS: PANTOPRAZOLE 40 MG TABLET PO SCH (08:55)
[2016-06-10] MEDS: NICOTINE 21 MG/24 HR PATCH TRANSDERM SCH (08:55)
[2016-06-10] MEDS: TICAGRELOR 90 MG TABLET PO SCH ×2 (08:55→23:16)
[2016-06-10] MEDS: ALLOPURINOL 300 MG TABLET PO SCH (08:55)
--- NOTE | 2016-06-10 14:31 | Cardiology Progress Note ---
Cardiology - PN: Subj Interval history: Cardiology note 56-year-old man status post non-Q-wave anterior ND Cardiac cath June 08 showed severe proximal LAD disease and diagonal disease and severe OM1 disease. Status post 2.5 x 12 mm Zions diagonal stent and 2.5 x 28 Zions LAD stent Status post 2.5 x 12 mm Alpine Zions OM1 stent No pain. Telemetry shows steady sinus rhythm Decreased breath sounds but clear Regular rhythm no murmur or gallop Right groin soft and dry. Small ecchymotic bruise but no bruit or hematoma. Distal pulses 2+ symmetric. Lab data today White count 8.7 hemoglobin 13.4 hematocrit 38.5 Sodium 146 potassium 3.5 chloride 107 CO2 27 BUN 16 creatinine 0.80 Hemoglobin A1c level 6.4 Peak troponin XVII Weight 74.9 kg Plan Routine groin precautions discussed Ambulate and monitor No smoking Continue aspirin and Brilinta and statin therapy Home tomorrow Patient is followed locally at the [facility] by Sarahi HAYES Office visit with Dr. Mina with EKG 1 week Exam (Progress Note) - Constitutional Vitals: Period Temp Pulse Resp BP Sys/Neumann Pulse Ox Last 24 Hr 97 F-97.9 F 71-92 18-20 104-165/62-97 94-100 Result/EKG - Labs CBC & BMP: 06/10/16 04:28 06/10/16 04:28 Labs: Laboratory Results - last 24 hr 06/09/16 06/09/16 06/10/16 15:31 19:39 04:28 WBC RBC Hgb Hct MCV MCH MCHC RDW Plt Count MPV Neut % (Auto) Lymph % (Auto) [place] % (Auto) Eos % (Auto) Baso % (Auto) Neut # (Auto) Lymph # (Auto) [place] # (Auto) Eos # (Auto) Baso # (Auto) Immature Gran % Nucleated RBC % Immature Gran # Nucleated RBCs # Sodium Potassium Chloride Carbon Dioxide Anion Gap BUN Creatinine GFR Calculation BUN/Creatinine Ratio Glucose POC Glucose 146 H 193 H Hemoglobin A1c 6.4 H Calculated Osmolality Calcium 06/10/16 06/10/16 06/10/16 04:28 04:28 07:17 WBC 8.7 D RBC 4.42 Hgb 13.4 L Hct 38.5 L MCV 87.1 MCH 30 MCHC 34.8 RDW 12.7 Plt Count 172 MPV 9.7 Neut % (Auto) 58.3 Lymph % (Auto) 28.3 [place] % (Auto) 10.4 Eos % (Auto) 2.4 Baso % (Auto) 0.5 Neut # (Auto) 5.1 Lymph # (Auto) 2.5 [place] # (Auto) 0.9 H Eos # (Auto) 0.2 Baso # (Auto) 0.0 Immature Gran % 0.1 Nucleated RBC % 0.0 Immature Gran # 0.01 Nucleated RBCs # 0.00 Sodium 146 H Potassium 3.5 Chloride 107 Carbon Dioxide 27 Anion Gap 15.5 H BUN 16 Creatinine 0.80 GFR Calculation 106 BUN/Creatinine Ratio 20.00 Glucose 121 H POC Glucose 129 H Hemoglobin A1c Calculated Osmolality 291.6 Calcium 8.1 L 06/10/16 11:47 WBC RBC Hgb Hct MCV MCH MCHC RDW Plt Count MPV Neut % (Auto) Lymph % (Auto) [place] % (Auto) Eos % (Auto) Baso % (Auto) Neut # (Auto) Lymph # (Auto) [place] # (Auto) Eos # (Auto) Baso # (Auto) Immature Gran % Nucleated RBC % Immature Gran # Nucleated RBCs # Sodium Potassium Chloride Carbon Dioxide Anion Gap BUN Creatinine GFR Calculation BUN/Creatinine Ratio Glucose POC Glucose 145 H Hemoglobin A1c Calculated Osmolality Calcium Quality Measures - VTE Contraindication to Pharmacological VTE Prophylaxis: Already on Theraputic Agent , No Prophylaxis Needed Specialty Discharge - Follow Up or Referrals
[2016-06-10] MEDS: ASPIRIN EC 81 MG TABLET PO SCH (23:15)
[2016-06-10] MEDS: ATORVASTATIN 40 MG TABLET PO SCH (23:15)
[2016-06-11] MEDS: LISINOPRIL 10 MG TABLET PO SCH (08:50)
[2016-06-11] MEDS: NICOTINE 21 MG/24 HR PATCH TRANSDERM SCH (08:50)
[2016-06-11] MEDS: PANTOPRAZOLE 40 MG TABLET PO SCH (08:51)
[2016-06-11] MEDS: ALLOPURINOL 300 MG TABLET PO SCH (08:51)
[2016-06-11] MEDS: TICAGRELOR 90 MG TABLET PO SCH (08:51)
[2016-06-11] MEDS: GABAPENTIN 100 MG CAPSULE PO SCH (08:51)
[2016-06-11] MEDS: CARVEDILOL 6.25 MG TABLET PO SCH (08:51)
[2016-06-11] MEDS: INSULIN LISPRO 100 UNIT/ML SUBCUT SCH ×2 (08:52→12:00)
--- NOTE | 2016-06-11 11:47 | Discharge Summary ---
<Heena Hammond E - Last Filed: 06/11/16 12:01> Hospital Course - Hospital Course Hospital Course: Mr. Colón, 56-year-old male, presented to the emergency department at [facility] June 08, 2016 with an NSTEMI. He underwent cardiac catheterization which revealed the following: Assessment: 1. Preserved cardiac volumes and ejection fraction with normal resting hemodynamics 2. Severe two-vessel coronary artery disease and daughter branch disease as described above status post successful percutaneous coronary mention with drug-eluting stents as described above 3. (Culprit vessel subtotal occluded mid LAD ) 3. Tobacco use disorder 4. Diabetes mellitus type 2 5. Dyslipidemia PLAN: 1. Dual antiplatelet therapy for a minimum of 1 year ideally 2. Aggressive therapy lifestyle changes including aggressive lipid management and smoking cessation 3. Cardiac rehab 4. BRAULIO inhibitor beta-omar high-dose statin low-dose aspirin ticagrelor 5. Monitor in the ICU for complications of non-ST elevation myocardial infarction 6. 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 2.5 x 28 mm Xience drug-eluting stent in the mid left anterior descending artery 2. 2.5 x 12 mm Xience drug-eluting stent in the first diagonal 3. 2.5 x 12 mm Xience drug-eluting stent in the first obtuse marginal 4. 8 [place] Angio-Seal closure device right femoral arteriotomy He tolerated the procedure well. He did have post angina and medications were adjusted accordingly. His troponin oscar significantly with the infarct but a discharge had decreased significantly. Patient has been anxious for release home. Having felt him at maximal medical therapy, patient is being discharged home in stable condition. He is being given a follow-up appointment Dr. Bowman next week. At that visit the following will be obtained, BMP, magnesium, CBC and EKG. He will need outpatient echo and I will schedule this for the same day as his appointment with Dr. Bowman next week. He was counseled regarding tobacco cessation, post catheterization expectations, diabetes and dietary instruction. 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 Bowman. Having failed him at maximal medical therapy, patient is being discharged home in stable condition. Discharge medications include: ASA 81MG orally daily Brilinta 90mg orally BID WITHOUT FAIL (he is being given Rx card) Atorvastatin 80mg orally each evening Carvedilol 6.25mg orally BID Lisinopril 10mg orally daily Nicotine patch Metformin 500mg orally BID Gabapentin 100mg orally BID Allopurinol 300mg orally dialy - Time spent with patient Time with patient DS: Greater than 30 minutes Time spent discussing smoking cessation with patient: 3 to 10 minutes Diagnosis - Discharge Diagnosis (1) CAD (coronary artery disease) Status: Chronic (2) Diabetes mellitus Status: Chronic (3) Non-ST elevation PR (NSTEMI) Status: Resolved (4) Dyslipidemia Status: Chronic (5) Essential hypertension Status: Chronic (6) Tobacco abuse Status: Chronic (7) Postinfarction angina Status: Resolved Specialty Discharge - Follow Up or Referrals Follow up with: Rianna Bowman DO [Physician] - 1 Week (Echo RE: NSTEMI, abnormal EKG. Please schedule the morning of appointment with Dr. Bowman. Will also need EKG, BMP, Mg, CBC) Discharge Plan - Discharge Data Disposition: Disch To Home/Self Care Condition at Discharge: Stable Discharge Diet: diabetic diet, heart healthy Activity: other (Post-cath expectations) Hygiene: no restrictions Weight Bearing at Discharge: other (Post-cath expectations) Driving: other (Post cath expectations) Contact your physician if you experience:: fever over 101, Difficulty voiding, Redness or swelling, Nausea/Vomiting, Shortness of breath, Bleeding, pain uncontrolled by pain medications - Discharge Medications New Carvedilol [Coreg] 6.25 mg PO BID #60 tablet Lisinopril [Prinivil] 10 mg PO DAILY #30 tablet Nicotine 21 mg/24 Hr Patch [Nicoderm CQ 21 mg/24 hr Patch] 1 patch TRANSDERM DAILY #30 patch Ticagrelor [Brilinta] 90 mg PO BID #60 tablet Atorvastatin [Lipitor] 80 mg PO BEDTIME #30 tablet Pantoprazole Tab [Protonix Tab] 40 mg PO DAILY #30 tablet Continue Aspirin [Ecotrin] 81 mg PO QPM Allopurinol 300 mg PO DAILY Gabapentin 100 mg PO BID metFORMIN [Glucophage] 500 mg PO BID Discontinued Nifedipine [Nifedipine ER] 30 mg PO DAILY Lovastatin 10 mg PO QPM - Follow Up or Referral Follow Up: Rianna Bowman DO [Physician] - 1 Week (Echo RE: NSTEMI, abnormal EKG. Please schedule the morning of appointment with Dr. Bowman. Will also need EKG, BMP, Mg, CBC) - Forms/Instructions Instructions: Myocardial Infarction (GEN), Coronary Artery Disease (GEN), Heart Healthy Diet (GEN), Cigarette Smoking and Your Health (GEN), Coronary Intravascular Stent Placement, Student Loan Counselor (GEN) Additional Discharge Instructions: Please have patient see his primary care provider within 1-2 weeks (Sarahi Olivo NP). Please give patient Brilinta prescription card. Exam - Constitutional Vitals: Period Temp Pulse Resp BP Sys/Neumann Pulse Ox Last 24 Hr 97.2 F-99.6 F 61-78 18-20 117-141/64-85 94-99 Exam: General: [Appears well with no apparent distress.] [Pleasant and cooperative. ] [Appears comfortable.] HEENT: [PERRL, normocephalic, atraumatic. Mucous membranes moist. No jaundice noted. Conjunctiva moist and clear, sclerae anicteric] Neck: No JVD/HJR, no thyromegaly or lymphadenopathy noted. No carotid bruit appreciated Cardiac: [Regular rate and rhythm.] [No murmur rub or gallop.] Lungs: [Clear to auscultation without accessory muscle use to assist the respiratory pattern.] Not requiring oxygen. Abdomen: Soft, bowel sounds normoactive. Nontender and nondistended. No abdominal bruit or thrill noted. No masses noted. Musculoskeletal: No fluid collection. Decreased range of motion is noted. Extremities: Right groin free of hematoma or bruit. No clubbing, cyanosis noted. [ No edema noted.] Upper extremity pulses 2+. Lower extremity pulses 2+ . Capillary refill less than 3 seconds. Skin: No unusual lesions or rashes. No skin breakdown appreciated. Neuro: Awake, alert and oriented 3. Moves all extremities well without hemiparesis or paralysis. No essential tremor is appreciated. 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 WOuld like to see prior to DC Discharging clinician: Heena Hammond NP Expected date of discharge: 06/11/16 <Erik Caicedo - Last Filed: 06/11/16 12:29> Hospital Course - Hospital Course Hospital Course: Cardiology addendum. Patient examined and chart reviewed. Patient has been walking the hallway. He is comfortable and pain-free. Telemetry shows steady sinus rhythm without ectopy or pauses. Right groin is soft and dry. Small ecchymotic bruise but no bruit or hematoma. Home today. No smoking. Medications as outlined. Office visit with Dr. Mina with EKG in 1 week
[2016-06-11 12:07] VITALS: BP 134/83
== END 2016-06-11 14:05 | disposition home or self-care (01) | DRG 247 ==
LOC: N.ED 14:04 → N.CL 16:24 → N.ICU 18:06 → MERGE 18:06 → N.TELEN 18:07 → N.ICU 18:43 → N.TELEN 06-09 10:44
PROVIDERS: ADMIT Internal Medicine Cardiovascular Disease; ATTEND Internal Medicine Cardiovascular Disease
PROC: CLCCHCL (ICD-10-PCS; 2016-06-08 16:45)